=== PATIENT | female | born 1985 | race African-American/Black ===

== ENCOUNTER 2017-10-01 05:56 | Emergency (ER) | payer MEDICAID ==
[2017-10-01] MEDS: RESP: ALBUTEROL 2.5 MG/IPRATROPIUM 0.5 MG NEB (SCH) INH ×3 (06:19)
[2017-10-01] MEDS: DEXAMETHASONE SOD PHOS 4 MG/ML VIAL IM (06:21)
== END 2017-10-01 07:26 | disposition home or self-care (01) ==
LOC: NEPE 05:56
DX: J45.901 Unspecified asthma with (acute) exacerbation (principal); F17.210 Nicotine dependence, cigarettes, uncomplicated
CPT/HCPCS: 94640; 94664; 96372; 99283-25